=== PATIENT | female | born 1980 | race Caucasian/White ===

== ENCOUNTER 2017-03-29 11:53 | Emergency (ER) | payer OTHER ==
[~2017-03-29] VITALS: Ht 157.5 cm; Wt 63.6 kg
[~2017-03-29 11:53] MED LIST: IBUP-1152 PO; PREN1TAB69 PO
[2017-03-29 11:55] VITALS: BP 117/81; PULSE 68; RESP 18; O2SAT 99
--- NOTE | 2017-03-29 12:13 | ED.REPORT ---
HPI-Psychiatric Illness Date of Service Mar 29, 2017 ED Provider: MD Nicole History of Present Illness: 37yo female sent in from Urgent care due to anxiety/hx. of vague SI. Pt. under a lot of stress due to workplace investigation. 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 No Nursing Notes Stated Complaint: POSSIBLE DEPRESSION/ANXIETY SENT FROM URGENT CARE Chief Complaint: Psychiatric Complaint Nursing Notes Reviewed: Yes Allergies: Coded Allergies: No Known Drug Allergies (Verified Allergy, Unknown, 03/03/10) Scheduled Escitalopram Oxalate (Escitalopram Oxalate) 10 Mg Tablet 10 MG PO DAILY IBUPROFEN-Expunged Drug, Do Not Renew! (IBUPROFEN-Expunged Drug, Do Not Renew!) 800 Mg Tablet 800 MG PO QID Vit/Fe Fumarate/Fa-Expunged Drug, Do (-Expunged Drug, Do Not Renew!) 1 Each Tablet 1 EACH PO DAILY Scheduled PRN Lorazepam (Lorazepam) 0.5 Mg Tablet 0.5 MG PO TID PRN PRN For Anxiety General Time Seen by MD: 12:06 Chief Complaint Anxious increased insomnia. Hx Obtained From: Patient Arrived By: Walk-in Onset Occurred: 1 week ago Symptom Duration: Waxes and wanes Progression Since Onset: Intermittent Recent Healthcare: No recent doctor visit Similar Sx Previous: No Risk-Psychiatric Illness Risk Notes: No hx. of psych illness Suicide Risk Stratification RF Statements: No risk factors Past Medical History Past Medical History denies Smoking History Never Smoker Social History Alcohol Use: "Social" Drug Use: Denies drug use Other Social History: Good social support Ambulatory Status Independent Review of Systems Constitutional: Denies: Chills, Fever Respiratory: Denies: Shortness of breath Cardiovascular: Denies: Chest pain GI: Denies: Abdominal pain Psychiatric: Reports: Anxiety, Insomnia, Stress Physical Exam Initial Vital Signs Vital Signs (First) Date Time Temp Pulse Resp B/P Pulse Ox O2 Delivery O2 Flow Rate FiO2 03/29/17 11:55 36.6 68 18 117/81 99 Room Air Initial VS: Vital signs normal General/Constitutional: Awake, Alert, No acute distress, Well appearing, Cooperative Psychiatric: Affect NL, Mood NL, Not suicidal, Not homicidal, No hallucinations , Cognitive function NL, Judgment/insight NL, Thought content NL Pt. convincingly denies SI. Thoughts were more along line of "I wish I wasn't here." No plan ever developed, no plan to get affairs in order. She is committed to her two children. She is seeing a therapist and has an appointment with Dr. Garcia on 04/03. Respiratory / Chest: Breath sounds NL, Breath sounds = bilat, No respiratory distress Cardiovascular: Heart rate NL, Regular rhythm Re-Eval/Medical Decision Med Decision/Clinical Course Pt. is stressed. No clinical indication at present for labs or CAPACITY ANALYST consult. Dr. Herrera examined Pt. and concurs with symptomatic management of anxiety/insomnia (Ativan and Lexapro) and follow up as planned with Dr. Garcia. Discussed s/s for which to return to ED. Pt. acknowledged understanding of treatment plan. Counseled Regarding: Diagnosis, Need for follow-up, When/why to return to ED Discharge & Departure Impression: Primary Impression: Anxiety Additional Impression: Situational stress )( Condition at Discharge: No danger to self, No danger to others Disposition: Home Patient Instructions: Anxiety (ED) Additional Instructions: You can use .5mg of ativan every 8 hours for acute anxiety. This is a temporary help only. Starting the escitalopram will be helpful for the anxiety effects of this antidepressant. If you are feeling worse, thinking of hurting yourself, or need additional help , please return to the ER Please follow up with Dr Garcia next week to make sure these medications are working for you. Referrals: Andrey Garcia MD (PCP) 3 to 4 Days as scheduled for follow up. EDSupervising Provider for APC: Kristy Rivera MD copies to: Andrey Garcia MDshHilario [facility] Mar 29, 2017 12:13 Kristy Rivera MD Mar 29, 2017 18:09
[2017-03-29] MEDS ORDERED: LORA0.5T PO (12:46)
[2017-03-29] MEDS ORDERED: ESCI10TA52 PO (12:46)
== END 2017-03-29 12:57 | disposition home or self-care (01) ==
LOC: SED 11:53
DX: F41.9 Anxiety disorder, unspecified (principal); F43.0 Acute stress reaction